=== PATIENT | male | born 1985 ===

== ENCOUNTER 2016-07-12 17:55 | Observation (INO) | payer SELFPAY ==
[2016-07-12 18:01] VITALS: TEMP 98.1
[2016-07-12] MEDS ORDERED: Sodium Chloride 0.9% 1,000 ML IV STA ×2 (18:03→20:23)
[2016-07-12 18:28] LABS: BASO % 0.4 % (0.0-2.0); EOS # 0.1 K/uL (0.0-0.7); EOS % 0.8 % (0.0-4.0); HEMATOCRIT 42.7 % (35.0-51.0); LYMPH # 3.6 K/uL (1.0-4.3); LYMPH % 42.2 % (20.0-40.0); MEAN CELL VOLUME 91.3 fl (80.0-94.0); MEAN CORPUSCULAR HEMOGLOBIN 30.4 pg (27.0-31.0); MEAN CORPUSCULAR HGB CONC 33.3 g/dL (33.0-37.0); MEAN PLATELET VOLUME 8.3 fl (7.2-11.7); MONO # 0.9 K/uL (0.0-0.8); NEUT % 46.6 % (50.0-75.0); NRBC % 0.1 % (0.0-0.0); RED CELL DISTRIBUTION WIDTH 13.2 % (11.5-14.5); WHITE BLOOD COUNT 8.6 K/uL (4.8-10.8)
[2016-07-12 18:33] LABS: ALB/GLOB RATIO 0.9 (1.0-2.1); ALKALINE PHOSPHATASE 163 U/L (38-126); ALT/SGPT 145 U/L (21-72); AST/SGOT 263 U/L (17-59); BILIRUBIN,TOTAL 1.2 mg/dl (0.2-1.3); BLOOD UREA NITROGEN 8 mg/dl (9-20); CALCIUM 9.3 mg/dL (8.4-10.2); CARBON DIOXIDE 18 mmol/L (22-30); CHLORIDE 101 mmol/L (98-107); GFR AFRICAN-AMERICAN > 60; GLUCOSE,RANDOM 111 mg/dL (75-110); MAGNESIUM 2.2 MG/DL (1.6-2.3); PHOSPHOROUS 4.5 mg/dl (2.5-4.5); POTASSIUM 4.1 MMOL/L (3.6-5.0); SODIUM 142 mmol/l (132-148); TOTAL PROTEIN 10.5 G/DL (6.3-8.2)
--- NOTE | 2016-07-12 18:35 | ED PDOC ---
HPI: Psych/Substance Abuse <Karsten Mcdaniels - Last Filed: 07/13/16 04:53> Chief Complaint (Provider): Intoxication ED Caveat: Intoxicated, Uncooperative History Per: Patient, EMS History/Exam Limitations: intoxication Current Symptoms Are (Timing): Still Present Modifying Factor(s): Alcohol Severity: Moderate Pain Scale Rating Of: 0 Associated Symptoms: Anger Involuntary Hold By: Local Law Enforcement Additional History Per: Law Enforcement ([employer]) Additional Complaint(s): Black Suarez is a 31 year old male, with no pertinent past medical history, who presents to the emergency department via EMS due to public intoxication. Patient was found exhibiting disorderly behavior while walking along the [employer]. Upon questioning from [place] police department, patient became restless and violent. Upon arrival to the emergency room, patient is in restraints due to aggressive behavior and admits to have been drinking. HPI/ROS are limited due to intoxication and uncooperative attitude. PMD: none specified <Monica Wills - Last Filed: 07/15/16 14:19> Time Seen by Provider: 07/12/16 18:01 Chief Complaint (Nursing): Altered Mental Status Past Medical History Vital Signs: Last Vital Signs Temp 98.1 F 07/12/16 17:57 Pulse 79 07/13/16 00:20 Resp 07/13/16 00:20 BP 113/68 07/13/16 00:20 Pulse Ox 99 07/13/16 00:41 <Karsten Mcdaniels - Last Filed: 07/13/16 04:53> Reviewed: Historical Data, Nursing Documentation, Vital Signs Vital Signs: Last Vital Signs Temp 98.1 F 07/12/16 17:57 Pulse 157 H 07/12/16 17:57 Resp 24 07/12/16 17:57 BP 116/106 H 07/12/16 17:57 Pulse Ox 99 07/12/16 17:57 - Medical History PMH: No Chronic Diseases - Surgical History Surgical History: No Surg Hx - Family History Family History: States: No Known Family Hx - Social History Alcohol: Occasional <Monica Wills - Last Filed: 07/15/16 14:19> - Allergies Allergies/Adverse Reactions: Allergies Allergy/AdvReac Type Severity Reaction Status Date / Time Unobtainable Allergy Verified 07/12/16 17:57 Review of Systems Review Of Systems: ROS cannot be obtained secondary to pt's inabilty to answer questions. (ROS is limited due to intoxication and uncooperative attitude) <Monica Wills - Last Filed: 07/15/16 14:19> Physical Exam - Reviewed Nursing Documentation Reviewed: Yes Vital Signs Reviewed: Yes - Physical Exam Appears: Positive for: In Acute Distress (acute psychiatric distress). Negative for: Well (aggressive and incoherently yelling) Head Exam: Positive for: ATRAUMATIC, NORMAL INSPECTION, NORMOCEPHALIC Skin: Positive for: Normal Color, Warm, Diaphoresis (outdoor temperature is 90 Fahrenheit) Eye Exam: Positive for: EOMI, PERRL, Conjunctival injection. Negative for: Scleral icterus ENT: Positive for: Normal ENT Inspection, Other (tacky mucous membranes). Negative for: Pharyngeal Erythema, Tonsillar Exudate Neck: Positive for: Normal, Painless ROM, Supple Cardiovascular/Chest: Positive for: Regular Rate, Rhythm, Tachycardia. Negative for: Murmur Respiratory: Positive for: Normal Breath Sounds. Negative for: Wheezing, Respiratory Distress Gastrointestinal/Abdominal: Positive for: Normal Exam, Soft. Negative for: Tenderness Back: Positive for: Normal Inspection. Negative for: Decreased ROM Extremity: Positive for: Normal ROM. Negative for: Tenderness, Deformity Neurologic/Psych: Positive for: Alert, Other (anxious appearing w/ incoherent speech and aggressive behavior towards ED staff). Negative for: Oriented, Motor /Sensory Deficits <Monica Wills - Last Filed: 07/15/16 14:19> - Laboratory Results Result Diagrams: 07/12/16 18:10 07/12/16 18:10 <Karsten Mcdaniels - Last Filed: 07/13/16 04:53> - Laboratory Results Result Diagrams: 07/12/16 18:10 07/12/16 18:10 - ECG O2 Sat by Pulse Oximetry: 99 (RA) Pulse Ox Interpretation: Normal - Critical Care Total Time (In Min): 30 Comments: For immediate bedside evaluation and management of acute alcohol induced psychosis Documented Critical Care: Time excludes all time spent performint seperately billable procedures <Monica Wills - Shayne Filed: 07/15/16 14:19> Medical Decision Making Medical Decision Making: Sobriety Statement: At 3:00 Patient is awake, oriented, and alert x3. The patient has a steady gate , clear speech, and is stable for discharge. Condition: Improved Diagnosis: Alcohol Intoxication <Karsten Mcdaniels - Last Filed: 07/13/16 04:53> Medical Decision Makin:01 Initial Impression: Intoxication Initial Plan: * EKG * Alcohol Serum * CBC * CMP * Creatine Phosphokinase * Magnesium * Phosphorous * Urine Drug Screen * Urine Dip * Ativan 2 mg IM * Haldol 5 mg IM * Sodium Chloride 0.9% 1,000 ml IV at 1,000 mls/hr * Glucose, Blood, POC * Urinary Straight Catheterization * ED Observation * 1:1 Observation * Restraints: Violent or Harm to Self/Others 18:01 Patient presents a danger to both himself and emergency department staff due to aggressive behavior. Upon arrival, patient is in 4 point restraints, will administer Ativan 2 mg IM and Haldol 5 mg IM for relief of acute psychosis. 18:13 Patient will be placed within ED Observation secondary to alcohol intoxication. Pending psychiatric stabilization clinical sobriety. See Observation note for further updates. 00:00 Transfer of Care to Karsten Mcdaniels MD. Patient pending sobriety. Scribe Attestation: Documented by Felice Tom, acting as a scribe for Monica Wills MD. Provider Scribe Attestation: All medical record entries made by the Scribe were at my direction and personally dictated by me. I have reviewed the chart and agree that the record accurately reflects my personal performance of the history, physical exam, medical decision making, and the department course for this patient. I have also personally directed, reviewed, and agree with the discharge instructions and disposition. <Monica Wills - Last Filed: 07/15/16 14:19> ED OBSERVATION Discharge: Yes Date of observation admission: 07/12/16 Time of observation admission: 18:13 - Observation admission statement Patient is being placed in observation because:: Patient will be placed within ED Observation secondary to alcohol intoxication. - Goals of Observation Goals of observation are:: Pending psychiatric stabilization clinical sobriety. - Progress Note Progress Note: 2100 Pt sleeping deeply. Off restraints. Arousable to loud voice and physical stimulation. 2300 Nurse reports blood from patient's mouth. Awoke patient to oral evaluation. Pt has multiple caries and gingival bleeding. Reports that this is ongoing issue and has woken with blood in mouth before and admits to poor oral hygiene. 2400 Pt sleeping. Endorsed to Dr Mcdaniels pending sobriety. <Monica Wills - Last Filed: 07/15/16 14:19> Disposition <Karsten Mcdaniels - Last Filed: 07/13/16 04:53> - Disposition Disposition Time: 18:13 Patient Signed Over To: Karsten Mcdaniels (patient pending sobriety) <Monica Wills - Last Filed: 07/15/16 14:19> - Clinical Impression Clinical Impression: Alcohol intoxication - Disposition Condition: STABLE
[2016-07-12 18:52] LABS: ALCOHOL SERUM 445 mg/dl (0-10)
[2016-07-12 19:58] LABS: PARTIAL THROMBOPLASTIN TIME 29.7 SECONDS (23.3-32.5)
[2016-07-12] MEDS ORDERED: Multivitamin (MVI) 10 ML, Thiamine 100 MG, Folic Acid 1 MG in Sodium Chloride 0.9% 1,00... IV ONE (20:23)
[2016-07-12 20:47] VITALS: BP 113/68
[2016-07-13 00:21] VITALS: PULSE 79; RESP 22
[2016-07-13 00:40] VITALS: O2SAT 99
--- NOTE | 2016-07-13 13:26 | CARD ---
APPROVED REPORT EKG Measurement Heart [id number] <Conclusion> Sinus tachycardia Otherwise normal ECG
== END 2016-07-13 06:00 | disposition home or self-care (01) ==
LOC: H.ER 17:55 → H.EROBSV 18:13
PROVIDERS: ADMIT Emergency Medicine; ATTEND Emergency Medicine
DX: F10.129 Alcohol abuse with intoxication, unspecified (principal); Y90.8 Blood alcohol level of 240 mg/100 ml or more; K02.9 Dental caries, unspecified; Z78.1 Physical restraint status
CPT/HCPCS: 80053; 82550; 82948; 83735; 84100; 85025; 85610; 85730; 93005; 96361; 96372; 96374; 96375; 99285; G0378; G0480; J1630; J2060; J3411; J7040